=== PATIENT | male | born 1980 | race Caucasian/White ===

== ENCOUNTER 2017-02-07 09:53 | Day surgery (SDC) | payer OTHER ==
[~2017-02-07] VITALS: Ht 177.8 cm; Wt 84.0 kg
[~2017-02-07 09:53] MED LIST: CeFAZolin 2 Gm/50 mL D5W IV Premix IV ONE; NAPR250T PO
[2017-02-07] MEDS ORDERED: Ondansetron 2 mg/mL 2 mL Inj ONE ×2 (09:54)
[2017-02-07] MEDS ORDERED: Dexamethasone 4 mg/mL Inj ONE ×2 (09:54)
[2017-02-07] MEDS ORDERED: fentaNYL-PF 50 mCg/mL 2 mL Inj ONE (09:54)
[2017-02-07] MEDS ORDERED: Lidocaine PF 1% 30 mL Inj ONE (09:54)
[2017-02-07] MEDS ORDERED: Propofol 10,000 mCg/mL 20 mL Inj ONE (09:54)
[2017-02-07] MEDS ORDERED: CeFAZolin Inj 2 gm / 50mL D5W IV ONE (09:55)
[2017-02-07] MEDS: Lactated Ringer's 1,000 ML IV SCH ×2 (09:55→11:08)
[2017-02-07 10:27] VITALS: BP 135/78; PULSE 63; RESP 18; O2SAT 100
[2017-02-07] MEDS ORDERED: Lactated Ringer's 500 ML IV PRN (11:37)
[2017-02-07] MEDS ORDERED: Lactated Ringer's 1,000 ML IV SCH (11:37)
--- NOTE | 2017-02-07 11:37 | PCM.HPANE ---
Patient Data Surgeon Admitting Provider: Attending Provider:Lul Lugo MD Primary Care Physician:Dennys Other Provider:Megan Anne Anesthesia Reason for Visit Right Knee Meniscal Tear Ht/WT & BMI Height (Feet): 5 Height (Inches): 10.00 Weight (Kilograms): 84.0 Body Mass Index 26.00 Allergies Coded Allergies: No Known Allergies (Unverified , 02/04/17) Past Anesthesia History Anesthesia History: Denies:: Fam Anesthesia Reaction, Fam Malignant Hypertherm Diabetes History Hx Diabetes?: No MRSA MRSA: No Medications Reported Medications Naproxen 250 Mg [id number] Mg PO BID PRN For Pain Ref 0 02/04/17 History History of ENT Problems?: No HEENT History: Denies:: Abnormal Airway Cataracts Difficult Intubation Dysphagia Glaucoma Hearing Problem Sinus Problem TMJ Denture Type: None Teeth Condition: Within Normal Limits Hx of Heart Problems?: No Cardiovascular History: Denies:: Heart Murmur Hypertension Hx of Respiratory Problem?: No Respiratory History: Denies:: Use of C-PAP Machine Hx Neurologic Problems?: No Hx of GI Problems?: No Hx of Problems?: No Skin History: Denies:: History Skin Disorders? Pressure Ulcers Hx Musculoskeletal Problems?: Yes Musculoskeletal History: Positive for:: Musculoskeletal Trauma (RT KNEE MENISCAL TEAR=CURRENT PROBLEM) Hx of Psycho/Social Problems?: No Hx Surgeries?: No Hx Any Other Health Problems?: No Other History: Denies:: Cancer Endocrine Disease Hospitalization Thyroid Disease History Blood Transfusions: Denies:: Blood Transfusions Hx Diabetes: No Have You Smoked inLast 12 mo: No Stop/Bang S-Snoring: Do You Snore Loudly: No T-Tired: feel tired, fatigued: No O-Obsered: Observed not breath: No P-Blood Pressure: treated: No B- Body Mass Index > 35 kg/m2: No A- Age over 50: No N- Neck Large Circumference: No G- Gender Male: Yes ANDREWS Total Score: 1 Risk Assessment Category Category 1A: Patient has history of documented sleep apnea, and HAS NOT received any narcotic, sedative or anesthesia administration during this stay. Category 1B: Patient has history of documented sleep apnea, and HAS received any narcotic , sedative or anesthesia administration during this stay Category 2: Patient has SUSPECTED Obstructive Sleep Apnea, and HAS received any narcotic , sedative or anesthesia administration during this stay. Category 3: Patient has SUSPECTED Obstructive Sleep Apnea and HAS NOT received narcotic, sedative or anesthesia administration during this stay. Category 4: Outpatient in Procedural Areas with known sleep apnea or who screen positive for High Risk via the STOP/BANG questionnaire. Exam Exam General Appearance: Alert, Oriented X3 HEENT/AIRWAY: MP 2, Neck Movement (FROM) Lungs: Clear to Auscultation, Clear to Percussion Heart: Exam Unremarkable, Regular Rate/Rhythm Meds/Labs/Diagnostics Admission Meds Current Medications Lactated Ringer's (Lr) 1,000 ml @ 120 mls/hr Q8H20M IV Last administered on t 09:55; Start 02/07/17 at 05:00; Stop 02/07/17 at 13:19 Plan Impression Patient chart reviewed, patient interviewed and anesthestic plan with risks, benefits, and alternatives discussed, and informed consent obtained. ASA Physical Status: ASA2 Mod Systemic Disease Anesthetic Plan: GA Bene/Risks/Altern/Consents: Yes HP Complete Prior to Induction: Yes Derrell Anderson MD Feb 07, 2017 10:30
[2017-02-07] MEDS ORDERED: HYDROmorphone 1 mg/mL Inj IVPUSH PRN (11:40)
[2017-02-07] MEDS ORDERED: EPHEDrine Sulfate 50 mg/mL Inj IVPUSH PRN (11:40)
[2017-02-07] MEDS ORDERED: Ondansetron 2 mg/mL 2 mL Inj IVPUSH PRN (11:40)
[2017-02-07] MEDS ORDERED: fentaNYL-PF 50 mCg/mL 2 mL Inj IVPUSH PRN (11:40)
[2017-02-07] MEDS ORDERED: MetoCLOpramide 5 mg/mL 2 mL Inj IVPUSH PRN (11:40)
[2017-02-07] MEDS ORDERED: Atropine 0.4 mg/mL Inj IVPUSH PRN (11:40)
[2017-02-07] MEDS ORDERED: Phenylephrine 10,000 mCg/mL Inj IVPUSH PRN (11:40)
[2017-02-07] MEDS ORDERED: Labetalol 5 mg/mL 4 mL Inj IV PRN (11:40)
[2017-02-07 11:45] VITALS: BP 136/76; PULSE 82; RESP 18; O2SAT 100
[2017-02-07 11:55] VITALS: BP 132/58; PULSE 80; RESP 16; O2SAT 100
--- NOTE | 2017-02-07 11:55 | PCM.ANEP1 ---
Post Anesthesia Phase 1 PACU Phase 1 Assessment Vital Signs Vital Signs Date Time Temp Pulse Resp B/P Pulse Ox O2 Delivery O2 Flow Rate FiO2 02/07/17 10:27 36.6 63 18 135/78 100 Room Air Anesthetic Administered: GA Level of Alertness: Awake, talking BLAIR's with Equal Strength: Yes Pain: No Nausea or Vomiting: No Oxygen Delivery: Simple Mask Lungs: Clear to Auscultation, Clear to Percussion Comments See anesth record for PACU VS. PACU VSS Derrell Anderson MD Feb 07, 2017 11:55
[2017-02-07 12:00] VITALS: BP 142/72; PULSE 78; RESP 16; O2SAT 100
[2017-02-07 12:06] VITALS: BP 127/73; PULSE 79; RESP 16; O2SAT 100
[2017-02-07 13:02] VITALS: BP 136/72; PULSE 70; RESP 18; O2SAT 100
--- NOTE | 2017-02-07 13:19 | OP ---
[address] [address] OPERATIVE REPORT PATIENT: PATEL PROCTOR : 1980 MR#: [id number] ADMIT: 02/07/2017 JOB ID: [id number] DATE OF SURGERY: 02/07/2017 SURGEON: Lul Lugo MD. PREOPERATIVE DIAGNOSIS(ES): Right knee lateral meniscal tear. POSTOPERATIVE DIAGNOSIS(ES): Procedure not done due to signicant rash on legs from IV Ancef. ABORTED OPERATIVE PROCEDURE NOTE: This patient had MRI scan consistent with a large lateral meniscal tear and possible partial ACL injury. He also did have a large Fuentes cyst. The patient was initialed in the holding area. When I did initial him, I did not see any obvious rash on his legs. He had been shaved appropriately for the arthroscopic procedure. Even at that time, I did not see anything with any major erythema around the knee. Evidently, when the nurse came back to bring him to the operating room, he was noted to have some slight erythema around the anterior aspect of the knee where he had been shaved, but there was no actual break in the skin. When he came into the operating room, the patient was already asleep and they gave him IV Ancef. After he was given his IV Ancef, within a very short period of time, the patient developed significant rash over both lower extremities, extending rapidly up to the knees. At that point, I consulted one of my colleagues and felt that the rash was too significant to proceed with any surgical intervention. He was given 50 mg of Benadryl IV by Anesthesia. The patient did not evidently have any airway issues. Pictures were taken of the rash and placed in his chart. Appropriate documentation was made. The surgery was canceled and the patient will need to be rescheduled in the future. [employer] will need to be contacted in regards to the above. The patient may be discharged to home on Benadryl 25 mg tablets 1-2 tablets p.o. q.4-6 h. p.r.n. rash and I will also give him a small amount of hydrocodone/acetaminophen for his knee pain with this meniscal tear. The patient will need to be followed up in the office and re-evaluated to check his rash within the next week to 10 days. CC: [facility] KAYLEE
== END 2017-02-07 23:59 | disposition home or self-care (01) ==
LOC: SAS 09:53
PROVIDERS: ATTEND Orthopaedic Surgery
DX: S83.281A Other tear of lateral meniscus, current injury, right knee, initial encounter (principal); T36.1X5A Adverse effect of cephalosporins and other beta-lactam antibiotics, initial encounter; Y92.234 Operating room of hospital as the place of occurrence of the external cause; X50.1XXA Overexertion from prolonged static or awkward postures, initial encounter; Y93.89 Activity, other specified; Y92.414 Local residential or business street as the place of occurrence of the external cause; Y99.0 Civilian activity done for income or pay; Z53.09 Procedure and treatment not carried out because of other contraindication
CPT/HCPCS: 29881; J0690; J1100; J1200; J2405; J3010; J7120

== ENCOUNTER 2017-03-14 05:54 | Day surgery (SDC) | payer OTHER ==
[~2017-03-14] VITALS: Ht 177.8 cm; Wt 83.3 kg
[2017-03-14] VITALS (9 sets, daily range): BP systolic 106–129; BP diastolic 50–75; PULSE 58–80; RESP 10–17; O2SAT 99–100
[~2017-03-14 05:54] MED LIST changes: -CeFAZolin 2 Gm/50 mL D5W IV Premix IV ONE
[2017-03-14] MEDS ORDERED: fentaNYL-PF 50 mCg/mL 2 mL Inj ONE (05:55)
[2017-03-14] MEDS ORDERED: Ondansetron 2 mg/mL 2 mL Inj ONE (05:55)
[2017-03-14] MEDS ORDERED: Dexamethasone 4 mg/mL Inj ONE (05:55)
[2017-03-14] MEDS ORDERED: Propofol 10,000 mCg/mL 20 mL Inj ONE (05:55)
[2017-03-14] MEDS: Lactated Ringer's 1,000 ML IV SCH ×2 (06:02→07:26)
[2017-03-14] MEDS ORDERED: Clindamycin 900 mg/50 mL D5W Premix IV ONE (06:04)
[2017-03-14] MEDS ORDERED: [UNRECOGNIZED DRUG - CODE] PO (06:06)
--- NOTE | 2017-03-14 06:57 | PCM.HPANE ---
Patient Data Surgeon Admitting Provider: Attending Provider:Lul Lugo MD Primary Care Physician:Dennys Other Provider:Megan Anne Anesthesia Reason for Visit Right Knee Lateral Meniscal Tear Ht/WT & BMI Height (Feet): 5 Height (Inches): 10 Weight (Kilograms): 83.3 Body Mass Index 26.00 Allergies Coded Allergies: cefazolin (Verified Allergy, Severe, RASH, EARLOBE SWELLING, 03/13/17) Past Anesthesia History Anesthesia History: Denies:: Abnormal Airway, Anesthesia Reactions, Difficult Intubation, Fam Anesthesia Reaction, Fam Malignant Hypertherm, Malignant Hyperthermia Diabetes History Hx Diabetes?: No MRSA MRSA: No Medications Home Meds Incl Beta Jared: No Reported Medications [Wal-Dryl] No Conflict Check25 Mg PO PRN #48 03/14/17 Naproxen 250 Mg [id number] Mg PO BID PRN For Pain Ref 0 02/04/17 History History of ENT Problems?: No HEENT History: Denies:: Abnormal Airway Cataracts Difficult Intubation Dysphagia Hearing Problem Sinus Problem TMJ Denture Type: None Teeth Condition: Within Normal Limits Hx of Heart Problems?: No Cardiovascular History: Denies:: AICD Abdominal Aortic Aneurism Atrial Fibrillation Cardiac Surgery Chest Pain Congestive Heart Failure Coronary Artery Disease Edema Heart Murmur Hypertension Irregular Heartbeat Pacemaker Peripheral Vascular Rheumatic Fever Thrombophlebitis Valvular Heart Disease Hx of Respiratory Problem?: No Respiratory History: Denies:: Asthma COPD Chest Surgery Cough Dyspnea Emphysema Hemoptysis Oxygen Administration Pneumonia Pulmonary Embolism Tuberculosis Use of C-PAP Machine Use of Inhalers / NEBS Hx Neurologic Problems?: No Neurological History: Denies:: Alzheimer's Disease CVA Dementia Dizziness Headaches Multiple Sclerosis Parkinson's Disease Peripheral Neuropathy Seizures TIA Hx of GI Problems?: No Gastrointestinal History: Denies:: Cirrhosis Diverticulitis Gall Bladder Disease Gastroesphageal Reflux Gastrointestinal Bleeding Heartburn Hepatitis Hiatal Hernia Liver Disease Rectal Bleeding Hx of Problems?: No Genitourinary History: Denies:: HX of Hemodialysis Kidney Stones Urinary Tract Infection HX of Peritoneal Dialysis: No Male Hx: Denies:: Prostate Problems Scrotal Mass Testicular Surgery Skin History: Denies:: History Skin Disorders? Pressure Ulcers Hx Musculoskeletal Problems?: Yes Musculoskeletal History: Positive for:: Musculoskeletal Trauma (RT KNEE MENISCAL TEAR=CURRENT PROBLEM) Denies:: Back Injury Degenerative Joint Fibromyalgia Joint Replacement Myasthenia Gravis Osteoarthritis Rheumatoid Arthritis Systemic Lupus Hx of Psycho/Social Problems?: No Psycho Social History: Denies:: Anxiety Bipolar Disorder Hx Depression Suicide Attempt Hx Surgeries?: Yes (ABORTED RT KNEE ARTHROSCOPY R/T DRUG REACTION) Hx Any Other Health Problems?: Yes Other History: Denies:: Cancer Endocrine Disease Hospitalization Thyroid Disease History Blood Transfusions: Positive for:: Accept Blood Products? Denies:: Blood Transfuse Reaction Blood Transfusions Hx Diabetes: No Smoking Status: Never Smoker Have You Smoked inLast 12 mo: No Stop/Bang S-Snoring: Do You Snore Loudly: No T-Tired: feel tired, fatigued: No O-Obsered: Observed not breath: No P-Blood Pressure: treated: No B- Body Mass Index > 35 kg/m2: No A- Age over 50: No N- Neck Large Circumference: No G- Gender Male: Yes ANDREWS Total Score: 1 Risk Assessment Category Category 1A: Patient has history of documented sleep apnea, and HAS NOT received any narcotic, sedative or anesthesia administration during this stay. Category 1B: Patient has history of documented sleep apnea, and HAS received any narcotic , sedative or anesthesia administration during this stay Category 2: Patient has SUSPECTED Obstructive Sleep Apnea, and HAS received any narcotic , sedative or anesthesia administration during this stay. Category 3: Patient has SUSPECTED Obstructive Sleep Apnea and HAS NOT received narcotic, sedative or anesthesia administration during this stay. Category 4: Outpatient in Procedural Areas with known sleep apnea or who screen positive for High Risk via the STOP/BANG questionnaire. Exam Exam Vital Signs Vital Signs Date Time Temp Pulse Resp B/P Pulse Ox O2 Delivery O2 Flow Rate FiO2 03/14/17 06:12 36.3 75 17 129/75 99 Room Air General Appearance: Alert, Oriented X3, Cooperative, No Acute Distress HEENT/AIRWAY: MP 2 Lungs: Clear to Auscultation, Normal Air Movement Heart: Exam Unremarkable, Regular Rate/Rhythm, No Murmurs/Rubs/Gallops Meds/Labs/Diagnostics Admission Meds Current Medications Lactated Ringer's (Lr) 1,000 ml @ 120 mls/hr Q8H20M IV Last administered on t 06:02; Start 03/14/17 at 05:00; Stop 03/14/17 at 13:19 Plan Impression Patient chart reviewed, patient interviewed and anesthestic plan with risks, benefits, and alternatives discussed, and informed consent obtained. NPO per Anesth. Guidelines: Yes ASA Physical Status: ASA1 Normal Healthy Anesthetic Plan: GA Bene/Risks/Altern/Consents: Yes HP Complete Prior to Induction: Yes Sp Aguilar MD Mar 14, 2017 06:57
[2017-03-14] MEDS ORDERED: Clindamycin Inj 900 MG in IV Premix 1 EACH IV ONE (07:25)
[2017-03-14] MEDS ORDERED: MetoCLOpramide 5 mg/mL 2 mL Inj IVPUSH PRN (07:45)
[2017-03-14] MEDS ORDERED: Ondansetron 2 mg/mL 2 mL Inj IVPUSH PRN (07:45)
[2017-03-14] MEDS ORDERED: fentaNYL-PF 50 mCg/mL 2 mL Inj IVPUSH PRN (07:45)
[2017-03-14] MEDS ORDERED: Lactated Ringer's 500 ML IV PRN (07:45)
[2017-03-14] MEDS ORDERED: Phenylephrine 10,000 mCg/mL Inj IVPUSH PRN (07:45)
[2017-03-14] MEDS ORDERED: EPHEDrine Sulfate 50 mg/mL Inj IVPUSH PRN (07:45)
[2017-03-14] MEDS ORDERED: Lactated Ringer's 1,000 ML IV SCH (07:45)
[2017-03-14] MEDS ORDERED: Atropine 0.4 mg/mL Inj IVPUSH PRN (07:45)
[2017-03-14] MEDS ORDERED: Labetalol 5 mg/mL 4 mL Inj IV PRN (07:45)
[2017-03-14] MEDS ORDERED: Bupivacaine-MPF 0.5% W/EPI 30 mL Inj INFILTRATE ONE (08:06)
[2017-03-14] MEDS ORDERED: oxyCODONE-Acetamin 5-325 mg Tablet PO PRN (09:15)
--- NOTE | 2017-03-14 09:40 | PCM.ANEP1 ---
Post Anesthesia PACU Phase 1 Assessment Vital Signs Vital Signs Date Time Temp Pulse Resp B/P Pulse Ox O2 Delivery O2 Flow Rate FiO2 03/14/17 09:31 36 74 13 110/57 100 Room Air 03/14/17 09:25 74 12 119/60 100 Room Air 03/14/17 09:20 74 12 112/64 100 Room Air 03/14/17 09:16 61 10 106/50 100 Simple Mask 10 03/14/17 09:11 62 11 106/57 100 Simple Mask 10 03/14/17 09:05 58 11 116/64 100 Simple Mask 10 03/14/17 09:01 36 58 10 119/63 100 Simple Mask 10 03/14/17 06:12 36.3 75 17 129/75 99 Room Air Anesthetic Administered: GA Level of Alertness: Awake, talking BLAIR's with Equal Strength: Yes Pain: No Nausea or Vomiting: No CV Function & Hydration Stable: No Airway Device: Oxygen Delivery: Room Air Lungs: Clear to Auscultation, Normal Air Movement Dermatome Level: Full Sensation PACU Phase 2 Assessment Complications: No Follow up Care: N/A Patient Instructions Provided: N/A Sp Aguilar MD Mar 14, 2017 09:40
[2017-03-14] MEDS ORDERED: Clindamycin 900 mg/50 mL D5W IV SCH (16:30)
--- NOTE | 2017-03-15 07:40 | OP ---
[address] [address] OPERATIVE REPORT PATIENT: PATEL PROCTOR : 1980 MR#: [id number] ADMIT: 03/14/2017 JOB ID: [id number] DATE OF SURGERY: 03/14/2017 PREOPERATIVE DIAGNOSIS(ES): 1. Right knee lateral meniscal tear. ICD 10 code S 83.281 A. 2. Right knee partial small anterior cruciate ligament tear. POSTOPERATIVE DIAGNOSIS(ES): 1. Right knee lateral meniscal tear. ICD 10 code S 83.281 A. 2. Right knee partial small anterior cruciate ligament tear. PROCEDURE: Right knee arthroscopy and partial lateral meniscectomy. CPT code 65505. SURGEON: Dr. Lul Lugo. ANESTHESIA: General. ESTIMATED BLOOD LOSS: Less than 5 mL. DRAINS: None. COMPLICATIONS: None. INDICATIONS: This is a 36-year-old male sustained an injury when he worked at [employer] to the right knee. MRI scan did show that he had a large lateral meniscal tear with a free flap that was displaced into the intercondylar notch. It also showed that he had a partial small ACL sprain. An MRI scan was also positive for popliteal cyst. PROCEDURE IN DETAIL: Under adequate general anesthesia, the patient was placed in the arthroscopic knee meyer on the right. The right leg was prepped and draped in a sterile fashion. After appropriate time-out was called, the leg was elevated, exsanguinated, tourniquet inflated to 300 mmHg. Each of the arthroscopic portals anteriorly were infiltrated with 0.5% Marcaine with epinephrine. Small incision was fashioned over the anterolateral portion of the knee. The arthroscope was introduced into the anterior inferior lateral portal and sequential examination was carried out. 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 There was some mild suprapatellar synovitis. The medial compartment was inspected, and there were no meniscal tears noted. He had minimal grade 1 chondromalacia of the tibial plateau. The intercondylar notch reveals that the anterior cruciate was intact. On clinical stress testing of the knee, the anterior cruciate ligament still appeared to be functioning clinically. The lateral compartment was then entered. The patient was found to have a very large portion of the lateral meniscus flipped into the intercondylar notch with a tear. The lateral compartment articular cartilage only had a small amount of chondromalacia grade 1 in nature. Due to the fact that the lateral band was tight trying to place the knee in figure of 4 position, I opted to place the arthroscope into the anteromedial portal after first identifying the portal with a spinal gauge needle. The arthroscope was placed in the medial portal and the arthroscopic shaver was placed in the lateral portal. The large lateral meniscal flap tear that was displaced in the intercondylar notch was easily visible. It was then debrided with basket cutters as well as the meniscal shaver. Once the meniscal tear was debrided, I did probe the lateral meniscus to a stable rim. I also performed an anterior drawer on the knee. Examination in the ACL still had a good end point. Arthroscopic pictures were taken before and after the debridement. The patient was found to have grade 1 chondromalacia of the lateral femoral condyle and medial tibial plateau. There was fraying of the anterior portion of the lateral meniscus and this too was trimmed. The remaining lateral meniscal trim was noted to be intact and it was probed. Permanent x-rays were taken with image intensification. The scope was then removed from the knee and any excess fluid was removed from the knee. The wounds were sutured with interrupted horizontal mattress sutures of 3-0 nylon. The joint was then infiltrated with 20 cc of 0.5% Marcaine with epinephrine for postoperative analgesia. Xeroform, cast padding and Omer wraps were applied. The patient was taken to recovery room in stable condition. Sponge and needle count correct. COMPLICATIONS: None. The patient was taken to recovery room in stable condition. PLAN: 1. The patient may be weightbearing as tolerated with his crutches. He should not squat or kneel. He needs to keep the wound clean and dry. Should not submerge in water this week. May shower at seven days but should not sit in a bathtub or a hot tub. The patient was given a prescription for pain medicine and antibiotics. He is to remain off work at this time. He has been scheduled to see physical therapy next week. The patient will begin range of motion and gentle strengthening. He was given some additional dressings so that he may do dressing change on Friday.
== END 2017-03-14 23:59 | disposition home or self-care (01) ==
LOC: SAS 05:54
PROVIDERS: ATTEND Orthopaedic Surgery
PROC: 0SBC4ZZ Excision of Right Knee Joint, Percutaneous Endoscopic Approach (ICD-10-PCS; principal; 2017-03-14 07:15)
DX: S83.281A Other tear of lateral meniscus, current injury, right knee, initial encounter (principal); X50.0XXA Overexertion from strenuous movement or load, initial encounter; S83.511A Sprain of anterior cruciate ligament of right knee, initial encounter
CPT/HCPCS: 29881; J1100; J1885; J2405; J3010; J7120

== ENCOUNTER 2017-03-18 17:37 | Emergency (ER) | payer OTHER ==
[~2017-03-18] VITALS: Ht 177.8 cm; Wt 84.1 kg
[~2017-03-18 17:37] MED LIST changes: +[UNRECOGNIZED DRUG - CODE] PO
[2017-03-18 17:41] VITALS: BP 119/87; PULSE 105; RESP 16; O2SAT 99
[2017-03-18] MEDS ORDERED: OXYC-466 PO (17:46)
[2017-03-18] MEDS ORDERED: DOCU-41 PO (17:46)
[2017-03-18] MEDS ORDERED: ASPI325T32 PO (17:46)
--- NOTE | 2017-03-18 17:53 | ED.REPORT ---
HPI-Extremity Problem Lower Date of Service Mar 18, 2017 ED Provider: Vaughn Cuevas PAC History of Present Illness: 37yo male 4 days s/p R knee laproscopic meniscus repair done at this hospital by Dr. Lugo. He has developed some R calf swelling and tenderness today and spoke with someone at Dr. Lugo's office today and advised to come to ED to r/o DVT. No fever or SOB. Taking prophylactic Clinda, and Percocet, ASA, and docusate sodium. Using crutches as directed Nursing Notes Stated Complaint: SENT FOR ULTRASOUND TO CHECK FOR POSS BLOOD CLOT Chief Complaint: Extremity Trauma Nursing Notes Reviewed: Yes Allergies: Coded Allergies: cefazolin (Verified Allergy, Severe, RASH, EARLOBE SWELLING, 03/18/17) Scheduled Aspirin (Aspirin) 325 Mg Tablet 325 MG PO DAILY Scheduled PRN Docusate Sodium (Colace) 100 Mg Capsule 100 MG PO DAILY PRN PRN For Constipation oxyCODONE-Acetaminophen 10-325 mg (oxyCODONE-Acetaminophen 10-325 mg) 1 Each Tablet 1 TAB PO q6hrs PRN PRN For Pain General Time Seen by MD: 17:52 Chief Complaint Leg injury right Hx Obtained From: Patient Arrived By: Walk-in Onset Occurred: Yesterday Location: : Leg right Quality: Cramping, Dull Severity: Current: Mild Severity: Maximum: Mild Associated with: Denies: Difficulty breathing, Fever, Joint swelling, Unable to walk, Wound discharge Pertinent Negative: Pt denies other symptoms Relieved by: Prescription meds Recent Healthcare: Recent doctor visit, Previous surgery Similar Sx Previous: No Risk-Extremity Prob Lower Well's Criteria for DVT Immob lower ext (1), Bed >3d/Surg in 4wks (1) Well's DVT Score: 1-2 pts (mod risk 33%) Past Medical History Past Surgical History R knee meniscus repair 03/14/17 Smoking History Never Smoker Review of Systems Constitutional: Denies: Chills, Fever Musculoskeletal: Reports: Extremity pain, Extremity swelling Respiratory: Denies: Shortness of breath Cardiovascular: Denies: Chest pain Physical Exam Initial Vital Signs Vital Signs (First) Date Time Temp Pulse Resp B/P Pulse Ox O2 Delivery O2 Flow Rate FiO2 03/18/17 17:41 36.7 105 16 119/87 99 Room Air Initial VS: Reviewed Right Knee: Positive: Tenderness present... (no surgical wound infection), Negative: Erythema present, Neuro deficit present, Warmth present Right Leg / Calf: Positive: R calf > L calf, Swelling present... (Mild), Tenderness present... (Mild), Negative: Neuro deficit present, Pulses distal decreased R mid-calf 39.5cm L mid-calf 38.0cm General/Constitutional: Awake, Alert, No acute distress, Well hydrated, Not toxic appearing Respiratory / Chest: Breath sounds NL, Breath sounds = bilat, No respiratory distress Cardiovascular: Heart rate NL, Regular rhythm, Heart sounds NL Interpretation & Diagnostics Lab Results Interpretation Result Diagram: 03/18/17 1823 03/18/17 1823 Test 03/18/17 18:23 White Blood Count 8.1th/mm3 (3.8-10.1) Red Blood Count 4.85mil/mm3 (4.40-5.80) Hemoglobin 14.8g/dL (13.8-17.2) Hematocrit 41.2% (41.0-50.0) Mean Corpuscular Volume 84.9fL (81-100) Mean Corpuscular Hemoglobin 30.5pg (27.0-35.0) Mean Corpuscular Hemoglobin Concent 35.9% (32.0-37.0) Red Cell Distribution Width 12.4% (12.3-15.4) Platelet Count 309bil/L (150-400) Neutrophils (%) (Auto) 70.3% (40-74) Lymphocytes (%) (Auto) 17.5% (14-46) Monocytes (%) (Auto) 10.4% (4-12) Eosinophils (%) (Auto) 1.1% (0-5) Basophils (%) (Auto) 0.2% (0-3) Prothrombin Time 10.3sec (8.1-12.5) Prothromb Time International Ratio 0.96ratio Sodium Level 137mEq/L (134-144) Potassium Level 4.1mEq/L (3.5-5.2) Chloride Level 99mEq/L (97-108) Carbon Dioxide Level 25mmol/L (18-29) Blood Urea Nitrogen 14mg/dL (6-20) Creatinine 0.87mg/dL (0.76-1.27) Estimat Glomerular Filtration Rate 106mL/min (>59) Glucose Level 106mg/dL (60-99) Calcium Level 9.5mg/dL (8.5-10.1) Total Bilirubin 2.1mg/dL (0.0-1.2) Aspartate Amino Transf (AST/SGOT) 20U/L (0-50) Alanine Aminotransferase (ALT/SGPT) 20U/L (0-44) Alkaline Phosphatase 67U/L (25-150) Total Protein 7.1g/dL (6.4-8.4) Albumin 3.9g/dL (3.4-5.0) US Soft Tissue/Musculoskeletal PROCEDURE: US VEINOUS LEG DUPLEX UNILATERAL, RIGHT INDICATIONS: r/o DVT. Meniscus repair on 03/14/17 TECHNIQUE: Real-time imaging, as well as color and pulse Doppler interrogation, were performed of the lower extremity deep veins from the inguinal ligament to the popliteal fossa. COMPARISON: [facility], MR, MR KNEE RT WO CON, 12/27/2016, 16:41. FINDINGS: The deep veins are normally compressible, and free of intraluminal thrombus. Color and pulse Doppler demonstrate normal phasic intraluminal flow. There is normal augmentation response to distal compression maneuver. There is a complex fluid collection medial to the popliteal fossa measuring 5.7 x 1.4 x 4.2 cm. IMPRESSION: 1. No DVT in the right lower extremity. 2. A complex Fuentes's cyst in the medial posterior aspect of the knee. Dictated by: Oxana Maguire M.D. on 03/18/2017 at 19:27 Approved by: Oxana Maguire M.D. on 03/18/2017 at 19:29 Re-Eval/Medical Decision Med Decision/Clinical Course R calf swelling, no DVT, likely sequella to recent surgery. Labs, exam, and US very reassuring. Advised continue treatment plan from Dr. Lugo. Follow up with her office later this week for recheck. Return to ER if any problems. Discharge & Departure Impression: Primary Impression: Tenderness of right calf Additional Impressions: Fuentes's cyst of knee Laterality: right Qualified Code: M71.21 - Synovial cyst of popliteal space [Fuentes], right knee S/P medial meniscal repair Disposition: Home Patient Instructions: Bakers Cyst (ED) Additional Instructions: Continue current therapy as recommended by Dr. Lugo. call her office tomorrow to arrange a recheck later this week. Return to this ER if anything worsens. Referrals: Lul Lugo MD 1 Day recheck R knee EDSupervising Provider for APC: Wesly Paredes DO copies to: Lul Lugo MD, [facility] Mar 18, 2017 17:53
[2017-03-18 18:41] LABS: BASOPHILS % (AUTO) 0.2 % (0-3); EOSINOPHILS % (AUTO) 1.1 % (0-5); MONOCYTES % (AUTO) 10.4 % (4-12); Mean Corpuscular Hemoglobin 30.5 pg (27.0-35.0); Mean Corpuscular Volume 84.9 fL (81-100); NEUTROPHILS % (AUTO) 70.3 % (40-74); Platelet Count 309 bil/L (150-400)
[2017-03-18 19:01] LABS: INR 0.96 ratio
--- NOTE | 2017-03-18 19:31 | DRSVH ---
PROCEDURE: US VEINOUS LEG DUPLEX UNILATERAL, RIGHT INDICATIONS: r/o DVT. Meniscus repair on 03/14/17 TECHNIQUE: Real-time imaging, as well as color and pulse Doppler interrogation, were performed of the lower extr emity deep veins from the inguinal ligament to the popliteal fossa. COMPARISON: [facility], MR, KNEE RT WO CON, 12/27/2016, 16:41. FINDINGS: The deep veins are normally compressible, and free of intraluminal thrombus. Color and pu lse Doppler demonstrate normal phasic intraluminal flow. There is normal augmentation response to di stal compression maneuver. There is a complex fluid collection medial to the popliteal fossa measuri ng 5.7 x 1.4 x 4.2 cm. IMPRESSION: 1. No DVT in the right lower extremity. 2. A complex Fuentes's cyst in the medial posterior aspect of the knee. Dictated by: Oxana Maguire M.D. on 03/18/2017 at 19:27 Approved by: Oxana Maguire M.D. on 03/18/2017 at 19:29
[2017-03-18 20:05] VITALS: BP 133/85; PULSE 80; RESP 18; O2SAT 99
== END 2017-03-18 20:05 | disposition home or self-care (01) ==
LOC: SED 17:37
DX: M79.604 Pain in right leg (principal); M71.21 Synovial cyst of popliteal space [Baker], right knee; Z98.890 Other specified postprocedural states; Z79.82 Long term (current) use of aspirin; Z88.1 Allergy status to other antibiotic agents